=== PATIENT | male | born 1940 | race Caucasian/White ===

== ENCOUNTER 2022-01-19 19:59 | Inpatient (IN) | payer MEDICARE ==
[2022-01-19 21:15] LABS: #Basophils 0.1 thou/uL (0.0-0.2); #Eosinphils 0.4 thou/uL (0.0-0.7); #Monocytes 0.8 thou/uL (0.11-0.59); #Neutrophils 8.3 thou/uL (1.40-6.50); %Basophils 0.7 % (0.0-1.0); %Eosinophils 4.1 % (0.0-10.0); %Lymphocytes 9.5 % (21.0-51.0); %Monocytes 7.5 % (0.0-10.0); %Neutrophils 78.2 % (42.0-75.0); Hemoglobin 12.8 g/dL (14.0-18.0); Mean Corpuscular HGB CONC 30.8 g/dL (32.0-36.0); Mean Corpuscular Hemoglobin 29.5 pg (27.0-31.0); Mean Corpuscular Volume 95.8 fL (78.0-98.0); Mean Platelet Volume 6.9 fL (7.4-10.4); Platelet Count 221 thou/uL (130-400); Red Blood Cell (RBC) Count 4.35 mill/uL (4.70-6.10); White Blood Cell (WBC) Count 10.5 thou/uL (4.8-10.8)
[2022-01-19 21:23] LABS: INR-International Normal Ratio 1.2; Prothrombin Time 14.9 sec (12.0-14.7)
[2022-01-19 21:24] LABS: PTT 41.8 sec (22.9-36.1)
[2022-01-19] MEDS ORDERED: Promethazine HCl 25 MG/ML VIAL IM PRN (21:32)
[2022-01-19] MEDS ORDERED: Ondansetron PF 4 MG/2 ML Vial IVP PRN (21:32)
[2022-01-19] MEDS ORDERED: hydrALAZINE 20 MG/ML VIAL SLOW IVP PRN ×2 (21:32→21:35)
[2022-01-19] MEDS ORDERED: traMADol HCl 50 MG TAB PO PRN (21:34)
[2022-01-19 21:35] LABS: ALT (SGPT) 20 U/L (8-55); AST (SGOT) 17 U/L (5-34); Albumin 3.6 g/dL (3.4-4.8); Alkaline Phosphatase 92 U/L (40-110); Anion Gap 12 mmol/L (10-20); BUN (Urea Nitrogen) 19 mg/dL (8.4-25.7); Bilirubin, Total 0.9 mg/dL (0.2-1.2); Calc. Creatinine Clearance 0 mL/min (70-130); Calcium 9.2 mg/dL (7.8-10.44); Carbon Dioxide 27 mmol/L (23-31); Chloride 105 mmol/L (98-107); Globulin 3.5 g/dL (2.4-3.5); Glucose 109 mg/dL (83-110); Potassium 4.1 mmol/L (3.5-5.1); Protein, Total 7.1 g/dL (5.8-8.1); Sodium 140 mmol/L (136-145)
[2022-01-19] MEDS ORDERED: Cyclobenzaprine 10 MG TAB PO PRN (21:35)
[2022-01-19] MEDS ORDERED: Sodium Chloride 0.9% 1,000 ML IV SCH (21:45)
[2022-01-19] MEDS ORDERED: Ibuprofen 200 MG TAB PO PRN (22:18)
[2022-01-19] MEDS ORDERED: Morphine 4 MG/ML VIAL SLOW IVP PRN (22:18)
[2022-01-20 00:35] VITALS: BMI 17.1
[2022-01-20 00:57] LABS: SARS-CoV-2 NAA Rapid Test Not Detected (NotDetected)
[2022-01-20] MEDS: traMADol HCl 50 MG TAB PO SCH ×4 (01:28→18:08)
[2022-01-20] MEDS: Acetaminophen 325 MG TAB PO SCH ×4 (01:29→18:08)
[2022-01-20 05:37] LABS: #Basophils 0.1 thou/uL (0.0-0.2); #Eosinphils 0.4 thou/uL (0.0-0.7); #Neutrophils 6.3 thou/uL (1.40-6.50); %Basophils 0.8 % (0.0-1.0); %Lymphocytes 11.7 % (21.0-51.0); %Monocytes 10.8 % (0.0-10.0); %Neutrophils 71.8 % (42.0-75.0); Hemoglobin 11.8 g/dL (14.0-18.0); Mean Corpuscular Hemoglobin 29.9 pg (27.0-31.0); Mean Corpuscular Volume 96.6 fL (78.0-98.0); Mean Platelet Volume 6.7 fL (7.4-10.4); Platelet Count 220 thou/uL (130-400); RBC Distribution Width 13.1 % (11.5-14.5); Red Blood Cell (RBC) Count 3.94 mill/uL (4.70-6.10); White Blood Cell (WBC) Count 8.8 thou/uL (4.8-10.8)
[2022-01-20 05:55] LABS: Phosphorus 3.1 mg/dL (2.3-4.7)
[2022-01-20 05:56] LABS: Anion Gap 9 mmol/L (10-20); BUN (Urea Nitrogen) 21 mg/dL (8.4-25.7); Calc. Creatinine Clearance 52 mL/min (70-130); Calcium 8.8 mg/dL (7.8-10.44); Carbon Dioxide 28 mmol/L (23-31); Chloride 106 mmol/L (98-107); Glucose 97 mg/dL (83-110); Potassium 4.2 mmol/L (3.5-5.1); Sodium 139 mmol/L (136-145)
[2022-01-20] MEDS ORDERED: CEFAZOLIN 2 GM, IV Admixture Fee-Chemo 1 UNITS in Sodium Chloride 0.9% 100 ML IVPB SCH (07:45)
[2022-01-20] MEDS: Polyethylene Glycol 3350 17 GM Packet PO SCH (10:24)
[2022-01-20] MEDS: Famotidine 20 MG TAB PO SCH ×2 (10:24→20:16)
[2022-01-20] MEDS: Senokot S 8.6-50 MG TAB PO SCH ×2 (10:25→20:19)
[2022-01-20] MEDS ORDERED: ceFAZolin (BATCH) 2 GM/100 ML BAG ONE (12:01)
[2022-01-20] MEDS ORDERED: Fentanyl 100 MCG/2 ML VIAL ONE (12:14)
[2022-01-20] MEDS ORDERED: Ondansetron PF 4 MG/2 ML Vial ONE (12:19)
[2022-01-20] MEDS ORDERED: Lidocaine 1% PF 5 ML VIAL ONE (12:19)
[2022-01-20] MEDS ORDERED: PROPOFOL 200 MG/20 ML VIAL ONE (12:19)
[2022-01-20] MEDS ORDERED: Glycopyrrolate 0.2 MG/ML 5 ML SYRINGE ONE (12:19)
[2022-01-20] MEDS ORDERED: Dexamethasone 20 MG/5 ML VIAL ONE (12:19)
[2022-01-20] MEDS ORDERED: Rocuronium Bromide 10 MG/ML (10ML VIAL) ONE (12:19)
[2022-01-20] MEDS ORDERED: PHENYLEPHRINE-NS 100 MCG/ML 10 ML SYRINGE ONE (12:19)
[2022-01-20] MEDS ORDERED: PACU-Morphine 4MG/ML VIAL SLOW IVP PRN (14:02)
[2022-01-20] MEDS ORDERED: Promethazine HCl 25 MG/ML VIAL IVPB PRN (14:02)
[2022-01-20] MEDS ORDERED: Promethazine HCl 25 MG/ML VIAL IM PRN (14:02)
[2022-01-20] MEDS ORDERED: Lorazepam 0.5 MG TAB PO PRN (14:17)
[2022-01-20] MEDS: Tamsulosin HCl 0.4 MG CAP PO SCH (15:24)
[2022-01-20] MEDS: Finasteride 5 MG TAB PO SCH (15:24)
[2022-01-20 16:52] LABS: Bacteria/HPF None Seen HPF (None Seen); Bilirubin Negative (Negative); Blood, Urine Negative (Negative); Clarity Clear (Clear); Glucose, Urine (Dipstick) Normal (Negative); Ketone, Urine Trace mg/dL (Negative); Leukocyte Negative Leu/uL (Negative); Nitrite Negative (Negative); Protein, Urine (Dipstick) 30 mg/dL (Neg-Trace); RBC/HPF 0-3 HPF (0-3); Specific Gravity, Urine 1.029 (1.002-1.036); Squamous Epithelial 0-3 HPF (0-3); Urobilinogen Normal mg/dL (Less than 2); WBC/HPF 0-3 HPF (0-3)
[2022-01-20 17:01] LABS: Urine Culture Reflex No No
[2022-01-20] MEDS: OLANZapine 5 MG TAB PO SCH (20:16)
[2022-01-20] MEDS: traZODone HCl 50 MG TAB PO SCH (20:16)
[2022-01-20] MEDS: CEFAZOLIN 2 GM, Admixture Fee 1 EACH in Sodium Chloride 0.9% 100 ML IVPB SCH (20:17)
[2022-01-21] MEDS: traMADol HCl 50 MG TAB PO SCH ×4 (01:09→17:52)
[2022-01-21] MEDS: Acetaminophen 325 MG TAB PO SCH ×4 (01:09→17:51)
[2022-01-21] MEDS: CEFAZOLIN 2 GM, Admixture Fee 1 EACH in Sodium Chloride 0.9% 100 ML IVPB SCH ×2 (03:31→12:12)
[2022-01-21 05:17] LABS: #Lymphocytes 0.7 thou/uL (1.20-3.40); #Monocytes 1.1 thou/uL (0.11-0.59); #Neutrophils 7.9 thou/uL (1.40-6.50); %Basophils 0.1 % (0.0-1.0); %Eosinophils 0.4 % (0.0-10.0); %Lymphocytes 7.3 % (21.0-51.0); %Monocytes 11.1 % (0.0-10.0); %Neutrophils 81.1 % (42.0-75.0); Hemoglobin 10.2 g/dL (14.0-18.0); Mean Corpuscular HGB CONC 31.9 g/dL (32.0-36.0); Mean Corpuscular Hemoglobin 30.7 pg (27.0-31.0); Mean Corpuscular Volume 96.2 fL (78.0-98.0); Platelet Count 201 thou/uL (130-400); RBC Distribution Width 12.8 % (11.5-14.5); Red Blood Cell (RBC) Count 3.34 mill/uL (4.70-6.10); White Blood Cell (WBC) Count 9.7 thou/uL (4.8-10.8)
[2022-01-21] MEDS: Aspirin 81 mg Enteric Coated Tablet PO SCH ×2 (09:56→20:45)
[2022-01-21] MEDS: Polyethylene Glycol 3350 17 GM Packet PO SCH (09:56)
[2022-01-21] MEDS: Senokot S 8.6-50 MG TAB PO SCH ×3 (09:57→20:45)
[2022-01-21] MEDS: OLANZapine 5 MG TAB PO SCH ×2 (09:57→20:45)
[2022-01-21] MEDS: Finasteride 5 MG TAB PO SCH (09:58)
[2022-01-21] MEDS: Famotidine 20 MG TAB PO SCH ×2 (09:59→20:45)
[2022-01-21] MEDS: Donepezil HCl 10 MG TAB PO SCH (09:59)
[2022-01-21] MEDS: Tamsulosin HCl 0.4 MG CAP PO SCH (09:59)
[2022-01-21] MEDS: traZODone HCl 50 MG TAB PO SCH (20:45)
[2022-01-22] MEDS: Acetaminophen 325 MG TAB PO SCH ×4 (00:05→17:22)
[2022-01-22] MEDS: traMADol HCl 50 MG TAB PO SCH ×4 (00:05→17:23)
[2022-01-22 06:00] LABS: #Eosinphils 0.7 thou/uL (0.0-0.7); #Lymphocytes 1.5 thou/uL (1.20-3.40); %Basophils 0.4 % (0.0-1.0); %Eosinophils 8.3 % (0.0-10.0); %Lymphocytes 18.3 % (21.0-51.0); Hemoglobin 9.8 g/dL (14.0-18.0); Mean Corpuscular HGB CONC 30.7 g/dL (32.0-36.0); Mean Corpuscular Hemoglobin 29.8 pg (27.0-31.0); Mean Corpuscular Volume 97.2 fL (78.0-98.0); Mean Platelet Volume 6.8 fL (7.4-10.4); Platelet Count 212 thou/uL (130-400); RBC Distribution Width 12.9 % (11.5-14.5); White Blood Cell (WBC) Count 8.2 thou/uL (4.8-10.8)
[2022-01-22 06:23] LABS: Anion Gap 8 mmol/L (10-20); BUN (Urea Nitrogen) 27 mg/dL (8.4-25.7); Calc. Creatinine Clearance 48 mL/min (70-130); Calcium 8.2 mg/dL (7.8-10.44); Carbon Dioxide 29 mmol/L (23-31); Chloride 104 mmol/L (98-107); Glucose 82 mg/dL (83-110); Magnesium 1.9 mg/dL (1.6-2.6); Phosphorus 2.5 mg/dL (2.3-4.7); Potassium 4.1 mmol/L (3.5-5.1); Sodium 137 mmol/L (136-145)
[2022-01-22] MEDS: Aspirin 81 mg Enteric Coated Tablet PO SCH ×2 (08:39→20:53)
[2022-01-22] MEDS: OLANZapine 5 MG TAB PO SCH ×2 (08:40→20:56)
[2022-01-22] MEDS: Donepezil HCl 10 MG TAB PO SCH (08:41)
[2022-01-22] MEDS: Finasteride 5 MG TAB PO SCH (08:41)
[2022-01-22] MEDS: Famotidine 20 MG TAB PO SCH ×2 (08:41→20:53)
[2022-01-22] MEDS: Polyethylene Glycol 3350 17 GM Packet PO SCH (08:43)
[2022-01-22] MEDS: Senokot S 8.6-50 MG TAB PO SCH ×2 (08:43→08:44)
[2022-01-22] MEDS: Tamsulosin HCl 0.4 MG CAP PO SCH (08:44)
[2022-01-22] MEDS ORDERED: Sodium Chloride 0.9% 500 ML IV SCH (16:15)
[2022-01-22] MEDS: traZODone HCl 50 MG TAB PO SCH (20:53)
[2022-01-23] MEDS: traMADol HCl 50 MG TAB PO SCH ×4 (00:30→17:56)
[2022-01-23] MEDS: Acetaminophen 325 MG TAB PO SCH ×4 (00:30→17:56)
[2022-01-23] MEDS ORDERED: Magnesium Citrate 300 ML BOT PO SCH (07:00)
[2022-01-23] MEDS: Famotidine 20 MG TAB PO SCH (09:23)
[2022-01-23] MEDS: Tamsulosin HCl 0.4 MG CAP PO SCH (09:23)
[2022-01-23] MEDS: Donepezil HCl 10 MG TAB PO SCH (09:23)
[2022-01-23] MEDS: Finasteride 5 MG TAB PO SCH (09:23)
[2022-01-23] MEDS: OLANZapine 5 MG TAB PO SCH (09:23)
[2022-01-23] MEDS: Polyethylene Glycol 3350 17 GM Packet PO SCH (09:24)
[2022-01-23] MEDS: Senokot S 8.6-50 MG TAB PO SCH (09:24)
[2022-01-23] MEDS: Aspirin 81 mg Enteric Coated Tablet PO SCH (09:24)
[2022-01-23 16:02] VITALS: BP 111/58; TEMP 97.5
== END 2022-01-23 19:00 | DRG 522 ==
LOC: ERS 19:59 → SURG B 21:32
PROVIDERS: ADMIT Surgery; ATTEND Surgery
PROC: 0SRS0JZ Replacement of Left Hip Joint, Femoral Surface with Synthetic Substitute, Open Approach (ICD-10-PCS; principal; 2022-01-20)
PROC: 0T9B70Z Drainage of Bladder with Drainage Device, Via Natural or Artificial Opening (ICD-10-PCS; 2022-01-21)
DX: S72.012A Unspecified intracapsular fracture of left femur, initial encounter for closed fracture (principal); N39.0 Urinary tract infection, site not specified; R64 Cachexia; Z68.1 Body mass index [BMI] 19.9 or less, adult; N18.9 Chronic kidney disease, unspecified; W19.XXXA Unspecified fall, initial encounter; F20.9 Schizophrenia, unspecified; G30.9 Alzheimer's disease, unspecified; F02.80 Dementia in other diseases classified elsewhere, unspecified severity, without behavioral disturbance, psychotic disturbance, mood disturbance, and anxiety; N40.0 Benign prostatic hyperplasia without lower urinary tract symptoms; Z20.822 Contact with and (suspected) exposure to COVID-19; R33.9 Retention of urine, unspecified; R63.6 Underweight; Y92.009 Unspecified place in unspecified non-institutional (private) residence as the place of occurrence of the external cause
CPT/HCPCS: 36415; 36416; 70450; 71045; 72125; 72170; 80048; 80053; 81001; 83735; 84100; 85025; 85610; 85730; 86850; 86900; 86901; 93005; C1713; C1776; G0390; J0690; J1100; J2405; J2704; J2710; J3010; J7030; J7050; U0002